=== PATIENT | female | born 1955 | race Two or more races ===

== ENCOUNTER 2023-06-09 14:00 | Emergency (ER) | payer OTHER ==
[~2023-06-09] VITALS: Ht 152.4 cm; Wt 63.5 kg
== END 2023-06-09 22:56 | disposition home or self-care (01) ==
LOC: ER 14:00
DX: S00.03XA Contusion of scalp, initial encounter (principal); W18.30XA Fall on same level, unspecified, initial encounter; Y93.9 Activity, unspecified; Y92.830 Public park as the place of occurrence of the external cause; Y99.9 Unspecified external cause status